=== PATIENT | male | born 1985 | race Caucasian/White ===

== ENCOUNTER 2021-07-16 18:32 | Emergency (ER) | payer OTHER ==
[2021-07-16] MEDS ORDERED: Orphenadrine 100 MG Tab.ER PO STA (21:06)
[2021-07-16] MEDS ORDERED: Ibuprofen 600 MG Tab PO ONE (21:06)
--- NOTE | 2021-07-16 21:13 | EDM.PDOC ---
ED HPI GENERAL MEDICAL PROBLEM - General Chief Complaint: Back Pain or Injury Stated Complaint: BACK PAIN Time Seen by Provider: 07/16/21 20:47 Source of Information: Reports: Patient History Limitations: Reports: No Limitations - History of Present Illness INITIAL COMMENTS - FREE TEXT/NARRATIVE: Mr. Evans is a very pleasant 36-year-old gentleman who now presents to the ED with lower back pain. He states that he strained his lower back around 2.5 to 3 weeks ago, when lifting something heavy at work. The pain is felt across his lower back, and occasionally radiates down the lateral aspect of his left thigh to just above the knee. His pain is made worse by sitting, standing, or moving. He has been using an inversion table, which has given him some relief. He has been taking acetaminophen and ibuprofen, which may help a bit. No prior back issues. No prior medical evaluation for this issue. At triage, the patient's initial BP was found to be slightly elevated at 138/96, otherwise, he was hemodynamically stable, afebrile, saturating 99% on room air. He appears to be comfortable, in no acute distress. Other than the back issue, the patient denies having a recent fever, chills, sore throat, ear pain, nasal or sinus congestion, cough, dyspnea, chest pain, palpitations, nausea, vomiting, constipation, diarrhea, abdominal pain, urinary symptoms, recent weight gain or weight loss, recent bloody bowel movements or black bowel movements, headaches, or rashes. The patient does not have a PCP. He has not received a COVID vaccination, nor an influenza vaccination this season. Lower Back Pain Score (Numeric/FACES): 7 - Related Data Allergies Allergy/AdvReac Type Severity Reaction Status Date / Time No Known Allergies Allergy Verified 07/16/21 19:25 Home Meds: Home Meds Orphenadrine [Norflex] 1 tab PO Q12H PRN #14 tab.er 07/16/21 [Rx] Past Medical History Musculoskeletal History: Reports: Fracture (right arm) - Infectious Disease History Infectious Disease History: Reports: Novel Coronavirus - Past Surgical History Musculoskeletal Surgical History: Reports: Other (See Below) (right arm pinning and rodding) Social & Family History - Tobacco Use Tobacco Use Status *Q: Current Every Day Tobacco User Tobacco Use Within Last Twelve Months: Smokeless Tobacco (3 pouches/day on some days) Years of Tobacco use: 17 Packs/Tins Daily: 1 Tobacco Use Comment: Started smoking 2004 - Caffeine Use Caffeine Use: Reports: Coffee, Energy Drinks - Alcohol Use Alcohol Use History: Yes Alcohol Use Frequency: Socially - Recreational Drug Use Recreational Drug Use: No - Living Situation & Occupation Living situation: Reports: , with Spouse 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 ED EXAM,LOWER BACK PAIN/INJURY - Physical Exam Exam: See Below Exam Limited By: No Limitations General Appearance: Alert, WD/WN, No Apparent Distress Eye Exam: Bilateral Eye: EOMI, Normal Inspection Ears: Normal External Exam, Hearing Grossly Normal Nose: Normal Inspection Throat/Mouth: Normal Inspection, Normal Lips, Normal Voice, No Airway Compromise Head: Atraumatic, Normocephalic Neck: Normal Inspection, Supple, Non-Tender, Full Range of Motion Respiratory/Chest: No Respiratory Distress, Lungs Clear, Normal Breath Sounds, No Accessory Muscle Use Cardiovascular: Normal Peripheral Pulses, Regular Rate, Rhythm, No Edema, No Gallop, No JVD, No Murmur, No Rub GI/Abdominal: Normal Bowel Sounds, Soft, Non-Tender, No Organomegaly, No Distention, No Abnormal Bruit, No Mass Back Exam: Other (No visible abnormality to the patient's lower back, such as swelling, erythema, ecchymosis, or abrasion. No significant tenderness to palp ation of the lower back. Straight leg raise to 90 degrees bilaterally without difficulty. The patient is able to flex to 90 degrees and extend to 75 degrees(!)) Extremities: Normal Inspection, Normal Range of Motion, Non-Tender (including the left thigh), No Pedal Edema, Normal Capillary Refill Neurological: Alert, Normal Dorsiflexion, Normal Plantar Flexion, No Motor/Sensory Deficits, Oriented x 3 Psychiatric: Normal Affect Skin Exam: Warm, Dry, Intact, Normal Color, No Rash Course - Vital Signs Last Recorded V/S: Last Vital Signs Temp 36.9 C 07/16/21 19:20 Pulse 65 07/16/21 19:20 Resp 14 07/16/21 19:20 BP 138/96 H 07/16/21 19:20 Pulse Ox 99 07/16/21 19:20 - Orders/Labs/Meds Meds: Medications Discontinued Medications Generic Name Dose Route Start Last Admin Trade Name Monica PRN Reason Stop Dose Admin Ibuprofen 600 mg 07/16/21 21:06 07/16/21 21:25 Ibuprofen 600 Mg Tab PO 07/16/21 21:07 600 mg ONETIME ONE Administration Orphenadrine Citrate 100 mg 07/16/21 21:06 07/16/21 21:25 Orphenadrine 100 Mg Tab.Er PO 07/16/21 21:07 100 mg ONETIME STA Administration - Re-Assessments/Exams Free Text/Narrative Re-Assessment/Exam: 07/16/21 21:07 Based on the patient's history and physical examination, his lower back pain is entirely due to a muscle spasm, not a herniated intervertebral disc. 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 I will provide him with a note to be off work for the next few days, although he is not certain that he will use it. If he does decide to take a few days off, I recommended that he [facility] and [facility]. Departure - Departure Time of Disposition: 21:09 Disposition: Home, Self-Care 01 Condition: Good Clinical Impression: Spasm of back muscles - Discharge Information *PRESCRIPTION DRUG MONITORING PROGRAM REVIEWED*: Not Applicable *COPY OF PRESCRIPTION DRUG MONITORING REPORT IN PATIENT CHANELL: Not Applicable Prescriptions: Orphenadrine [Norflex] 1 tab PO Q12H PRN #14 tab.er PRN Reason: Muscle Spasm - Painful Instructions: Muscle Cramps and Spasms, [id number] Referrals: PCP,Not In Area [Primary Care Provider] - Forms: ED Department Discharge, ED Return to Work/School Form Additional Instructions: You were seen in the emergency room for lower back pain occasionally radiating down your left thigh, after lifting a heavy item 2-1/2 to 3 weeks ago. Based on your history and physical examination, the cause of your back pain is most likely due to a muscle spasm. It is highly unlikely that your pain is due to a herniated intervertebral disc. You have been started on the muscle relaxant Norflex, and a prescription for Norflex has been sent to the [facility], located just south and across [address] from [facility]. The pharmacy will be open between noon and 4 PM tomorrow, 07/17/2021. Take 1 tablet of Norflex every 12 hours, as prescribed. Norflex works well with ibuprofen. We recommend that you take 3 tablets (600 mg) up to every 8 hours, with food, as needed for discomfort. It is imperative that you stay active. A note to be off work through 07/20/2021 has been provided. If you decide to take some time off, we recommend that you go to the [facility] center and swim. If you are unable to swim, walking is good, as well. If any other problems, please do not hesitate to return to the ER. Sepsis Event Note (ED) - Evaluation Sepsis Screening Result: No Definite Risk
== END 2021-07-16 21:26 | disposition home or self-care (01) ==
LOC: JD.ED 18:32
DX: M62.830 Muscle spasm of back (principal); Z72.0 Tobacco use
CPT/HCPCS: 99283; A9270